=== PATIENT | female | born 1980 | race Caucasian/White ===

== ENCOUNTER → 2016-10-23 | Day surgery (SDC) | payer OTHER ==
[~2016-10-23] VITALS: Ht 160 cm; Wt 72.6 kg
[~2016-10-23] MED LIST: RESTASIS1 EACH OPH
--- NOTE | 2016-10-23 12:20 | Operative Report ---
Operative/Inv Procedure Report Surgery Date: 10/23/16 Name of Procedure: Right hip revision arthroscopy, debridement of scar tissue, labral repair, femoroplasty Pre-Operative Diagnosis: Right painful hip after hip arthroscopy and labral repair Post-Operative Diagnosis: Right recurrent labral tearing secondary to adhesion formation Estimated Blood Loss: scant Surgeon/Ball Assembler: BRAULIO DEE,KAVITA DIAL Anesthesia: general endotracheal tube Complications: None Condition: Stable to PACU Operative Indication: This is a 36-year-old female who previously underwent a right hip arthroscopy. She was pain-free for quite some time however started developing pain with time. She has failed conservative care. Risks and benefits of the procedure were discussed with the patient at length. Risks include but are not limited to nerve damage, muscle damage, infection, blood loss, blood clots, pulmonary embolus, and even . The patient agreed to the above risks and elected to proceed with surgery. Operative/Procedure Note Note: The patient was taken to the operating room and placed supine on the operating room table. General anesthesia was induced by the anesthesia team. The patient received IV antibiotics prior to incision. A timeout was performed prior to incision. The site marking was visualized prior to the incision. The patient was positioned on the hip table and the perineum was positioned up against a well-padded post. X-rays were taken to ensure adequate positioning and distraction of the extremity. The hip was prepped and draped in the normal sterile fashion. Traction was then applied. A spinal needle was used to enter the hip joint under x-ray guidance in the lateral portal position just anterior to the greater trochanter at the site of her previous portal. An air arthrogram was established. The hip joint was insufflated with saline. The spinal needle was removed from the hip joint. This allowed the spinal needle to be reinserted through the capsule while avoiding the labrum. A wire was then inserted through the spinal needle. Over the wire a cannula was inserted. The scope was then inserted and under direct visualization an anterolateral portal was then established with a spinal needle. This was made just lateral to a sagittal line drawn down from the ASIS again through her previous portal position. A [place] blade was then inserted and a capsulotomy was performed connecting the 2 portals. The capsule was debrided with a shaver. Any bleeding vessels were identified and cauterized. The diagnostic arthroscopy was then performed which showed the above findings. The shaver was then used to take down the extensive adhesion formation that formed between the labrum and the superior capsule. A wand was used to cauterize any bleeding vessels and to stabilize the soft tissue to prevent against recurrent adhesion formation. The shaver was used to debride the soft tissue deep to the labrum and to expose the bony acetabulum. A switching stick was then inserted and the bur was assembled over the switching stick. The bur was then used to decorticate the acetabulum. The bony resection started centrally at the superior acetabulum and then was tapered medially and laterally. This was performed to create a smooth, normal acetabular transition. Care was taken to protect the labrum during bony resection. X-rays were taken to ensure adequate bony resection. Next the acetabulum was drilled to place an anchor. The drill guide was used to drill while the chondral surface was visualized to ensure no violation of the chondral surface occurred. The anchor was then placed. The arthro-Carrillo was then used to shuttle the suture. This was then tied down with a locking knot and several half hitches. The excess suture was cut. This process was repeated. A total of two 2.3 mm osteoraptor anchors were placed. A third was attempted to be placed however the bone was soft and a pulled out. Subsequently a 2.9 mm anchor was drilled in place. The labrum was then probed and noted to be quite stable. This was then further stabilized with an RF device. The shaver was used to perform chondroplasty at the periphery of the acetabular articular cartilage where there was an area of grade 3 chondral changes at the posterior superior acetabulum. The traction was then let down and the hip was flexed up to 45 degrees. The 30 degree scope was then used. A more proximal portal was established with a spinal needle just proximal to the greater trochanter. A spinal needle was inserted and a wire was then shuttled through the spinal needle. An 11 blade was used to incise a skin. A dilator was then placed over the wire. The bur was then inserted and the revision femoroplasty was begun proximally. X-rays were taken to ensure adequate bony resection. The camera and the bur were then switched and further femoroplasty was begun to ensure a smooth normal transition from the femoral head down to the neck. Final x-rays were taken to ensure adequate femoroplasty. The hip joint was copiously irrigated. All instruments were removed. The portal sites were closed with 3-0 nylon suture in a simple interrupted fashion and the hip joint was insufflated with 20 mL of 0.25% percent [place]. A dry sterile dressing was applied and the patient was transferred to PACU in stable condition. Findings: Extensive adhesion formation between the superior capsule and labrum. Grade 3 chondral changes at the periphery of the acetabular chondral labral junction. Femoral head articular cartilage intact. No pincer lesion present. Hyperemia throughout the anterior superior labrum. Labral instability anteriorly. Small residual prominence of the femoral head neck junction.
--- NOTE | 2016-10-23 17:39 | RADIOLOGY REPORT ---
EXAMINATION: XR HIP, RIGHT C-ARM FLUOROSCOPIC ASSISTANCE AT THE TIME OF THE PROCEDURE CLINICAL INFORMATION: 36-year-old female for right hip arthroscopic revision. COMPARISON: None TECHNIQUE: 4 spot radiographs were obtained using C-arm fluoroscopy at the time of the procedure. Total fluoroscopy time was 25 seconds. FINDINGS: The initial spot radiograph shows a radiopaque device projecting in the region of the right acetabulum. The 2nd spot radiograph shows radiopaque device projecting along the superolateral aspect of the junction between the head and neck of the right femur. The 3rd radiograph shows a radiopaque device projecting to the superolateral aspect of the right hip joint. Full procedural details will be dictated by Dr. Urena. IMPRESSION: Right hip arthroscopic revision. Full procedural details will be dictated by Dr. Urena.
== END ==
LOC: STS 00:51
DX: M25.851 Other specified joint disorders, right hip (principal); M25.551 Pain in right hip; M24.651 Ankylosis, right hip
CPT/HCPCS: 73501; 81025; J0131; J0171; J0690; J2250; J3250